=== PATIENT | female | born 1955 | race Caucasian/White ===

== ENCOUNTER 2017-08-05 20:41 | Emergency (ER) | payer OTHER ==
[~2017-08-05] VITALS: Ht 167.6 cm; Wt 99.8 kg
[~2017-08-05 20:41] MED LIST: CALCIUM + D 6001 TAB PO; COUMADIN 5 MG TA5 MG PO; ENABLEX15 MG PO; HAIR VITAMINS E1 TAB PO; MEVACOR20 MG PO; NEURONTIN100 MG PO; NEURONTIN300 MG PO; OXYCODONE HCL20 M1 PO; SYNTHROID0.125 MG PO; VENLAFAXINE HYD75 M1 PO; VENLAFAXINE150 MG PO; VICODIN5-300 PO; VITAMIN D50000 IU PO; ZESTORETIC 12.51 TAB PO
[2017-08-05 20:55] VITALS: BP 156/81
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
--- NOTE | 2017-08-05 23:33 | RADIOLOGY REPORT ---
EXAMINATION: XR KNEE, RIGHT CLINICAL INFORMATION: Status post replacement with fall. Pain. COMPARISON: 09/27/2014 TECHNIQUE: Four views of the right knee. FINDINGS: There is a total right knee arthroplasty. The distal femoral component articulates appropriately with the tibial plateau and patellar components. No periprosthetic lucency or fracture. No joint effusion. Superficial soft tissue edema. IMPRESSION: Total right knee arthroplasty in typical positioning and alignment. No evidence of fracture.
== END 2017-08-06 01:13 ==
LOC: ERH 20:41
DX: S82.431A Displaced oblique fracture of shaft of right fibula, initial encounter for closed fracture (principal); W19.XXXA Unspecified fall, initial encounter; Y92.481 Parking lot as the place of occurrence of the external cause; Y93.9 Activity, unspecified; Z79.01 Long term (current) use of anticoagulants
CPT/HCPCS: 72100; 73562-RT; 73610-RT